=== PATIENT | female | born 1955 | race Caucasian/White ===

== ENCOUNTER 2016-10-10 15:28 | Observation (INO) | payer OTHER ==
[~2016-10-10] VITALS: Ht 165.1 cm; Wt 65.3 kg
[~2016-10-10 15:28] MED LIST: NADO40TA PO
[2016-10-10 16:45] VITALS: PULSE 66
[2016-10-10] MEDS ORDERED: BUTA-273 PO (16:49)
[2016-10-10] MEDS ORDERED: ESTR1TAB24 PO (16:53)
[2016-10-10] MEDS ORDERED: Ondansetron 2 mg/mL 2 mL Inj IVPUSH PRN (16:55)
[2016-10-10] MEDS ORDERED: Atropine 1 mg/10 mL (Code) Syringe IVPUSH PRN (16:55)
[2016-10-10] MEDS ORDERED: Polyethylene Glycol (PEG) 17 Gm Powder PO PRN (16:55)
[2016-10-10] MEDS ORDERED: Senna-Docusate 8.6-50 mg Tablet PO PRN (16:55)
[2016-10-10] MEDS ORDERED: Alum-Mag Hydrox-Simeth 30 mL Suspension PO PRN (16:55)
--- NOTE | 2016-10-10 17:00 | NUR ---
Admit Pt a direct admit from [facility], pt arrived via ALS on a stretcher, pt able to transfer self to bed, steady gait observed. Pt alert and oriented, c/o of tightness in chest just under left breast, MD aware and was in room. Unable to obtain report from [facility] as their having phone problems, will continue to obtain report.
[2016-10-10 17:32] VITALS: BP 120/76; PULSE 70; RESP 16; O2SAT 98
[2016-10-10 17:44] LABS: Creatine Kinase 63 U/L (21-215)
[2016-10-10 17:54] LABS: TROPONIN T < 0.010 ug/L (0.0-0.011)
[2016-10-10] MEDS: 0.9% Sodium Chloride 1,000 ML IV SCH (17:54)
--- NOTE | 2016-10-10 17:54 | PCM.HPMED ---
Subjective Date of Service Oct 10, 2016 Primary Provider: Admitting Physician: Vlad Reyes MD Primary Care Physician: Edilson Mclean MD Attending Physician: Vlad Reyes MD Admit Status: Direct Admit, Remote Telemetry Chief Complaint: Chest pain History of Present Illness: Paul Valentin is a 61 yo with Migranes and Irritable bowel syndrome who was transferred from [facility] for evaluation of chest pain Located in mid chest, described as tightness, no radiation. Duration has been on and off for about a month. Usually resolves spontaneously. No alleviating or exacerbating factors. Patient denies any stress at home but takes care of her grandson and requiring lifting him at times. Denies any prior similar episode. No nausea or vomiting. No diaphoresis [place] data: WBC 7.7 Hgb 14.7 Plt 287 Na 141 K 4.5 BUN 20 Cr 0.8 Glucose 109 Troponin < 0.05 EKG showed normal sinus, Q waves in leads III,V1,V2 and V3. Poor R wave progression Chest X ray showed no acute disease ED physician discussed case with Dr Walsh who recommend transfer for stress testing Review of Systems: Pertinent positives as noted in HPI. 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 Surgical History Leg veins procedure Hysterectomy Nasal repair Breast reduction then implants . Family History Father has Hypertension Mother has Aortic Aneurysm (monitored) Social History Hx Alcohol Use: Yes ("VERY LITTLE") Hx Substance Use: No Hx Tobacco Use: No Smoking Status: Never Smoker Living Arrangement: with Family Exam Vital Signs Vital Sign - Last Date Time Temp Pulse Resp B/P Pulse Ox O2 Delivery O2 Flow Rate FiO2 10/10/16 17:32 36.6 70 16 120/76 98 Room Air Exam General: Alert, Oriented X3, Cooperative, No acute Distress Eyes: PERRLA, Scleral Anicteric Mouth: Mouth Normal, Mucous Membranes Moist/[place] Neck: Supple, no Thyromegaly, trachea central. Chest & Lungs: Clear to auscultation & percussion, No adventitious breath sounds, no crackles, no wheeze Cardiovascular: Normal S1, Normal S2, No Murmurs/Rubs/Gallops, Regular Rate/ Rhythm, Murmur, Other (No JVD, no peripheral edema) Pulses: Radial (present and equal), Dorsalis Pedi (present and equal) Abdomen: Soft, Non-tender, Non-distended, Normoactive bowel tones. Musculoskeletal: Unremarkable. Normal range of motion, no swollen or erythematous joints Extremities: No edema, no cyanosis, no clubbing. Skin: No rashes. Warm and dry, no erythematous areas Neurological: Grossly neurologically intact, Normal Speech, Sensation Intact Lymphatic: Lymph nodes Cervical and Axillary not palpable. Lab and Diagnostics Labs Laboratory Tests Test 10/10/16 17:06 10/10/16 22:40 Total Creatine Kinase 63U/L (21-215) Creatine Kinase MB 1.5ng/mL (0.0-5.3) Creatine Kinase MB % % (0.0-5.0) Troponin T < 0.010ug/L (0.0-0.011) Thyroid Stimulating Hormone (TSH) 1.660uIU/mL (0.450-4.500) Hold Shen Top Tube Received (Received) Assessment & Plan Paul Valentin is a 61 yo with Migranes and Irritable bowel syndrome who was transferred from [facility] for evaluation of chest pain 1. Acute Atypical chest pain. Present on admission Risk factor for acute coronary syndrome includes age, Mother with atherosclerotic disease. EKG showing some Q waves but non specific. Currently chest pain free. Differential diagnosis includes Reflux disease or Musculoskeletal. Suspect this is less likely cardiac based on her clinical picture but a stress test is indicated - monitor on telemetry - trending cardiac biomarkers - complete echo with exercise stress test tomorrow 2. Migraine. Chronic - holding Nadolol for stress test - continue daily Butabarbital - Acetaminophen as needed for mild pain/fever/headache - Bowel regimen as needed - Antiemetic as needed Patient is admitted under observation status with expected length of stay less than 2 midnights due to severity of presenting symptoms, risk of adverse event, and complexity of treatment plan. . Resuscitation Status: CPR: Attempt Resuscitation Vlad Reyes MD Oct 10, 2016 17:54
[2016-10-10] MEDS ORDERED: Butalbital-Acet-Caffeine Tablet PO SCH (21:00)
[2016-10-10 21:39] VITALS: BP 117/76; PULSE 68; RESP 18; O2SAT 97
[2016-10-10 23:40] LABS: Creatine Kinase 56 U/L (21-215)
[2016-10-11] MEDS: Sodium Chloride LOK Flush 10 mL Syringe IVFLUSH SCH ×2 (00:30→08:30)
[2016-10-11] MEDS: Heparin 5,000 Unit/mL Inj SUBQ SCH ×2 (01:07→10:06)
[2016-10-11 01:09] VITALS: BP 115/74; PULSE 64; RESP 18; O2SAT 97
[2016-10-11 04:41] VITALS: BP 114/75; PULSE 64; RESP 18; O2SAT 98
--- NOTE | 2016-10-11 05:38 | NUR ---
Cardiac Denies CP, discomfort or heaviness this shift. Tele SR per satellite project site monitor. NPO at midnight for stress test per MD notes. Patient aware and cooperative. Currently resting without any complaints.
[2016-10-11 05:50] VITALS: PULSE 77
[2016-10-11 06:04] LABS: BASOPHILS % (AUTO) 0.9 % (0-3); EOSINOPHILS % (AUTO) 4.6 % (0-5); Mean Corpuscular Hemoglobin 31.3 pg (27.0-35.0); NEUTROPHILS % (AUTO) 49.1 % (40-74); Platelet Count 210 bil/L (150-400)
[2016-10-11] MEDS: 0.9% Sodium Chloride 1,000 ML IV SCH (06:05)
--- NOTE | 2016-10-11 09:04 | NUR ---
Social Work: Screening Data: Pt is a 61 y/o female admitted for chest pain. Pt's PCP is Dr Mclean, pt's insurance is [facility]. EMR reviewed. No d/c planning needs anticipated at this time. LATHE SCALPER OPERATOR will continue to follow if needs arise. Assessment: Pt who is independent at baseline, living with family. Plan: Pt will d/c home via POV when medically stable. No d/c planning needs anticipated at this time. LATHE SCALPER OPERATOR will continue to follow if needs arise. VIRA Pedraza
[2016-10-11 09:12] VITALS: BP 132/73; PULSE 71; RESP 18; O2SAT 98
[2016-10-11 09:54] VITALS: PULSE 72
--- NOTE | 2016-10-11 14:07 | PCM.DIMED ---
Nick Calderon DO 10/11/16 1407: Discharge Instructions Date of Service Oct 11, 2016 Dates of Hospitalization Oct 10, 2016 at 16:40 Discharge Diagnosis Discharge Diagnosis 1. Acute Atypical chest pain 2. Migraine. Chronic Medication Instructions Please continue taking your medications as instructed. We have started you on an acid suppressing medication called Omeprazole. Please take it as instructed Diet No restrictions Activity No restrictions Call your provider Fever or Chills, Shortness of breath, Bleeding, Chest pain, Vomitting, Excessive diarrhea, Weakness (unilateral) Patient Instructions Your blood work, echocardiogram, and stress test were all reassuring today. Your chest pressure/pain is likely not due to an acute heart problem. We are discharging you home. Please follow up with your PCP within 1-2 weeks. If your chest pain worsens or is different in sensation, please return to the ER for evaluation. Your cholesterol levels were borderline. Please also discuss this with your PCP. Follow-up Provider: Edilson Mclean MD Follow-up with PCP in: 1 week Jono Alvarado MD 10/11/16 1678: Discharge Instructions Attending's Statement The patient was seen and examined independently on 10/11/2016 and case discussed with Dr. Calderon, I agree with the discharge instructions as outlined in the note above. Nick Calderon DO Oct 11, 2016 14:07 Jono Alvarado MD Oct 11, 2016 17:28
[2016-10-11] MEDS ORDERED: OMEP40CA36 PO (14:08)
--- NOTE | 2016-10-11 14:34 | NUR ---
Social Work: Discharge Data: Pt is on day 1 of hospitalization. EMR reviewed, d/c orders are in. No d/c planning needs at this time. HARD ROCK DRILL OPERATOR will continue to follow if needs arise. Assessment: Pt who is independent at baseline. Plan: Pt will d/c home via POV today. No d/c planning needs at this time. HARD ROCK DRILL OPERATOR will continue to follow if needs arise. VIRA Pedraza
--- NOTE | 2016-10-11 14:41 | PCM.DC.MED ---
Discharge Summary Date of Service Oct 11, 2016 Dates of Hospitalization Date of Hospital Admission Oct 10, 2016 at 16:40 Date of Discharge: Oct 11, 2016 Providers: Admitting Physician: Vlad Reyes MD Primary Care Physician: Edilson Mclean MD Attending Physician: Vlad Reyes MD Diagnosis at Time of Discharge Diagnosis at Time of Discharge 1. Acute Atypical chest pain 2. Migraine. Chronic Procedures Cardiac Echo Impression 10/11/16 Interpretation Summary 1. Normal left ventricular size, wall thickness and systolic function with an estimated EF of 60-65% 2. Normal right ventricular size and systolic function. 3. No valvular pathology appreciated There is no old study for comparison Other Diagnostics Exercise stress test was interpreted as low risk with no chest pain elicited Brief History Paul Valentin is a 61 yo with Migranes and Irritable bowel syndrome who was transferred from [facility] for evaluation of chest pain Located in mid chest, described as tightness, no radiation. Duration has been on and off for about a month. Usually resolves spontaneously. No alleviating or exacerbating factors. Patient denies any stress at home but takes care of her grandson and requiring lifting him at times. Denies any prior similar episode. No nausea or vomiting. No diaphoresis [place] data: WBC 7.7 Hgb 14.7 Plt 287 Na 141 K 4.5 BUN 20 Cr 0.8 Glucose 109 Troponin < 0.05 EKG showed normal sinus, Q waves in leads III,V1,V2 and V3. Poor R wave progression Chest X ray showed no acute disease ED physician discussed case with Dr Walsh who recommend transfer for stress testing Hospital Course Paul Valentin is a 61 yo with Migranes and Irritable bowel syndrome who was transferred from [facility] for evaluation of chest pain. She remained chest pain-free throughout the night, her cardiac biomarkers were negative, her exercise stress tests as very low risk without any chest pain elicited. She was discharged in good condition with instructions to follow-up with her PCP. She is to take omeprazole daily and modify her diet and exercise due to her borderline elevated cholesterol 1. Acute Atypical chest pain. Present on admission - resolved Risk factor for acute coronary syndrome includes age, Mother with atherosclerotic disease. EKG showing some Q waves but non specific. Currently chest pain free. Differential diagnosis includes Reflux disease or Musculoskeletal. Suspect this is less likely cardiac based on her clinical picture but a stress test is indicated - monitor on telemetry- uneventful overnight -Troponin negative 2 -Exercise stress test was read as low risk, echo results still pending but preliminary read seems benign -Was discharged with PPI, to assess whether acid reflux as a contributor 2. Migraine. Chronic - holding Nadolol for stress test -Butalbital also held -IV Toradol given for headache - Acetaminophen as needed for mild pain/fever/headache - Bowel regimen as needed - Antiemetic as needed discharge home Exam Vital Signs (Last) Date Time Temp Pulse Resp B/P Pulse Ox O2 Delivery O2 Flow Rate FiO2 10/11/16 09:54 72 10/11/16 09:12 36.5 18 132/73 98 Room Air Exam General: Alert, Oriented X3, Cooperative, No acute Distress Eyes: PERRLA, Scleral Anicteric Mouth: Mouth Normal, Mucous Membranes Moist/[place] Neck: Supple, no Thyromegaly, trachea central. Chest & Lungs: Clear to auscultation & percussion, No adventitious breath sounds, no crackles, no wheeze Cardiovascular: Normal S1, Normal S2, No Murmurs/Rubs/Gallops, Regular Rate/ Rhythm, Murmur, Other (No JVD, no peripheral edema) Abdomen: Soft, Non-tender, Non-distended, Normoactive bowel tones. Musculoskeletal: Muscle strength grossly intact and equal Extremities: No edema, no cyanosis, no clubbing. Skin: No rashes. Warm and dry, no erythematous areas Neurological: Grossly neurologically intact, Normal Speech, Sensation Intact Test 10/10/16 17:06 10/10/16 22:40 10/11/16 05:50 Hemoglobin A1c 5.5% (4.8-5.6) Thyroid Stimulating Hormone (TSH) 1.660uIU/mL (0.450-4.500) Hold Shen Top Tube Received (Received) Total Creatine Kinase 56U/L (21-215) Creatine Kinase MB 1.0ng/mL (0.0-5.3) Creatine Kinase MB % % (0.0-5.0) Troponin T 0.010ug/L (0.0-0.011) White Blood Count 4.6th/mm3 (3.8-10.1) Red Blood Count 4.15mil/mm3 (3.90-5.20) Hemoglobin 13.0g/dL (12.0-15.6) Hematocrit 38.2% (35.0-46.0) Mean Corpuscular Volume 92.0fL (81-100) Mean Corpuscular Hemoglobin 31.3pg (27.0-35.0) Mean Corpuscular Hemoglobin Concent 34.0% (32.0-37.0) Red Cell Distribution Width 12.0% (12.3-15.4) Platelet Count 210bil/L (150-400) Neutrophils (%) (Auto) 49.1% (40-74) Lymphocytes (%) (Auto) 30.2% (14-46) Monocytes (%) (Auto) 15.0% (4-12) Eosinophils (%) (Auto) 4.6% (0-5) Basophils (%) (Auto) 0.9% (0-3) Sodium Level 141mEq/L (134-144) Potassium Level 4.4mEq/L (3.5-5.2) Chloride Level 108mEq/L (97-108) Carbon Dioxide Level 22mmol/L (18-29) Blood Urea Nitrogen 13mg/dL (8-27) Creatinine 0.52mg/dL (0.57-1.00) Estimat Glomerular Filtration Rate 171mL/min (>59) Glucose Level 103mg/dL (60-99) Calcium Level 9.0mg/dL (8.5-10.1) Triglycerides Level 101mg/dL (0-149) Cholesterol Level 200mg/dL (100-199) LDL Cholesterol, Calculated 92.800mg/dL (0-99) VLDL Cholesterol 20.200mg/dL HDL Cholesterol 87mg/dL (>39) Cholesterol/HDL Ratio 2.30 (0.0-4.4) Discharge Medications Discharge Medications Butalbital/Acetaminophen (Butalbital-Acetamin 50-300 Tab) 50 Mg-300 Mg Tablet 1 EACH PO DAILY (Reported) Estradiol (Estradiol) 1 Mg Tablet 1 MG PO DAILY (Reported) Nadolol (Nadolol) 40 Mg Tablet 20 MG PO DAILY (Reported) Omeprazole (Omeprazole) 40 Mg Capsule. 40 MG PO DAILY Prescribed by: VALENTIN CALDERON, DO Additional med instructions Please continue taking your medications as instructed. We have started you on an acid suppressing medication called Omeprazole. Please take it as instructed Followup Plan Disposition: Home Discharge Diet: No restrictions Discharge Activity: No restrictions Patient Instructions Your blood work, echocardiogram, and stress test were all reassuring today. Your chest pressure/pain is likely not due to an acute heart problem. We are discharging you home. Please follow up with your PCP within 1-2 weeks. If your chest pain worsens or is different in sensation, please return to the ER for evaluation. Your cholesterol levels were borderline. Please also discuss this with your PCP. Follow-up Provider: Edilson Mclean MD Follow-up with PCP in: 1 week Attending Statement The patient was seen and examined independently on 10/11/2016 and case discussed with Dr. Calderon , I agree with the discharge summary as outlined in the note above. copies to: Edilson Mclean MD, Hong D DO Oct 11, 2016 14:41 Jono Alvarado MD Oct 11, 2016 17:29
--- NOTE | 2016-10-11 14:43 | DRSVH ---
[facility] [address] [place] [address] Echocardiogram Report Name: ELODIA JOHNSTON MStudy Steve e: 10/11/2016 Height: 65 in Hospital Exam Location: [facility] Weight: 144 lb Gender: Female BSA: 1.7 m2 : 1955 Age: 61 yrs BP: 114/75 mmHg Reason For Study: CHEST PAIN Ordering Physician: HOSPITALIST [facility] Performed By: Kenny Navarrete Referring Physician: Deisy Walsh Interpretation Summary 1. Normal left ventricular size, wall thickness and systolic function with an estimated EF of 60-65% 2. Normal right ventricular size and systolic function. 3. No valvular pathology appreciated There is no old study for comparison Procedure: A two-dimensional transthoracic echocardiogram with color flow and Doppler was performed. The study quality was technically good. There is no prior echocardiogram noted for this patient. The patient was in normal sinus rhythm during the exam. Left Ventricle: The left ventricle is normal in size. There is normal left ventricular wall thickness. The ejection fraction is estimated to be 60-65%. There are no focal wall motion abnormalities. Right Ventricle: The right ventricle is normal in size and function. Atria: Both atria are normal in size. No color doppler evidence for an ASD. Mitral Valve: The mitral valve is normal in structure and function. There is mild mitral regurgitation. Aortic Valve: The aortic valve is trileaflet. The aortic valve opens well. No aortic regurgitation is present. Tricuspid Valve: The tricuspid valve leaflets are thin and pliable. There is trace tricuspid regurgitation. The right ventricular systolic pressure is estimated at 20 mmHg assuming a right atrial pressure of 3 mm Hg. Pulmonic Valve: The pulmonic valve is normal in structure and function. There is trace pulmonic regurgitation. Great Vessels: The aortic root is normal size. The dimensions of the ascending aorta are normal. The pulmonary artery is normal size. The IVC is of normal diameter and collapses greater than 50% with a sniff. This suggests a low right atrial pressure of 3 mm Hg. Pericardium/ Pleura There is no pericardial effusion. There is no pleural effusion. MMode/2D Measurements & Calculations LVIDd: 4.6 cm LA dimension: 3.1 cm RA long axis Ao root diam LVIDs: 2.6 cm FS: 43.4 % LA A2 area: 17.0 cm RA area Aortic Jxn EPSS: 0.32 cm LA A4 area: 18.2 cm IVSd: 0.88 cm LA length (vol): 5.2 cm : 15.5 cm asc Aorta LVPWd: 0.86 cm LA vol: 50.8 ml RA vol: 42.3 mlDiam: 3.2 cm LA vol index RA : 24.6 mm2 IVC diam: 1.7 cm LV fitzgerald. diameter/BSA LV sys. diameter/BSA (cm/m^2): 2.7 (cm/m^2): 1.5 Doppler Measurements & Calculations Ao V2 max MV E max bandar MV E/A: 0.93 TR max bandar: 204.9 cm/sec : 127.2 cm/sec : 70.4 cm/sec Med Peak E' Bandar TR max P.8 mmHg Ao max PG MV A max bandar PA V2 max: 70.6 cm/sec : 6.5 mmHg : 75.9 cm/sec E/E' med: 10.0 PA mean P.2 mmHg Ao mean PG Pulm A Revs Dur PA Accel Time: 0.14 sec : 3.8 mmHg MV A dur: 0.12 sec MV dec time Ao V2 mean PA V2 mean Pulm A Revs Dur - MV A : 0.20 sec : 95.6 cm/sec : 52.3 cm/sec Dur: -0.01 msec Ao V2 VTI PA pr(Accel) : 29.1 cm : 14.1 mmHg Reading Physician:02:[id number] PM
--- NOTE | 2016-10-11 16:06 | NUR ---
Discharge Pt given her meds from pharmacy. All belongings with her. IV removed cath intact. Reviewed discharge instructions. No further questions at this time.
--- NOTE | 2016-10-12 11:32 | DRSVH ---
PROCEDURE: EITHER REST OR STRESS ONLY Exercise myocardial perfusion SPECT with gated imaging and ejection fraction RADIOPHARMACEUTICAL: 22.3 mCi Tc-99m tetrafosmin IV at peak exercise. INDICATIONS: CHEST PAIN. TECHNIQUE: Radiopharmaceutical was injected at peak stress test. SPECT images were obtained, with p erfusion images in short axis, horizontal long axis, and vertical long axis views. Gated images were reviewed using Renkoo software. COMPARISON: None. CARDIAC STRESS: A standard Aaron treadmill exercise tolerance test was performed by the patient under the supervision of an attending staff. The patient exercised for 5 minutes and 16seconds; functional aerobic impair ment (KRYSTAL) is 16 %. Hemodynamic data: There is normal blood pressure and heart response to exercise. Patient achieved 9 3% of maximum predicted heart rate. Symptoms: Patient denied anginal chest pain during exercise. EKG: No diagnostic changes of ischemia; no ectopy. FINDINGS: Raw data: There is good labeling of myocardium by radiotracer Left ventricular function: Gated images demonstrate normal left ventricle wall thickening. No segme ntal wall motion abnormalities. Left ventricle end diastolic volume is 59 mL. Left ventricle stress ejection fraction is >70% ; normal values are above 45%. Myocardial perfusion: There is a small area of mildly decreased uptake affecting the anterior wall ( sparing the apex). This completely normalizes on the prone images making the finding more likely rel ated to artifact. The area also moves and thickens appropriately on the gated images. Review of the raw data suggests that breast attenuation artifact may be contributing to these findings. No other imaging defects are appreciated. IMPRESSION: 1. Appropriate hemodynamic response to exercise. 2. No chest pain or significant ECG changes with stress. 3. No scintigraphic evidence for significant areas of myocardial ischemia at the level of stress achi eved. 4. Normal left ventricular size and systolic function. Dictated by: Rosa Walsh M.D. on 10/12/2016 at 11:26 Approved by: Rosa Walsh M.D. on 10/12/2016 at 11:31
== END 2016-10-11 15:07 | disposition home or self-care (01) ==
LOC: MPC 16:40
PROVIDERS: ADMIT Hospitalist; ATTEND Hospitalist
DX: R07.89 Other chest pain (principal); G43.709 Chronic migraine without aura, not intractable, without status migrainosus; Z82.49 Family history of ischemic heart disease and other diseases of the circulatory system
CPT/HCPCS: 36415; 78451; 80048; 80061; 82550; 82553; 83036; 84443; 84484; 85025; 93005; 93017; A9502; C8929; G0378; G0379; J1644; J1885; J7030